=== PATIENT | female | born 1965 | race Hispanic/Latino ===

== ENCOUNTER 2017-05-16 08:20 | Emergency (ER) | payer MEDICAID ==
[2017-05-16] MEDS ORDERED: REGLAN IV ONE (09:05)
[2017-05-16] MEDS ORDERED: NACL 0.9% 1000 ML 1,000 ML IV ONE (09:05)
[2017-05-16] MEDS ORDERED: BENADRYL IV ONE (09:06)
--- NOTE | 2017-05-16 09:19 | Emergency Department Report ---
HPI - General Chief Complaint: Headache Time Seen by Provider: 05/16/17 08:54 - HPI HPI: This is a 51-year-old female presents to the emergency department from a mental health and substance abuse facility with complaint of a 2 day history of a frontal and superior headache. The patient says that she has been diagnosed with migraines in the past but says that she does not get them very often and therefore does not carry any type of medication to treat it. She does not currently have a primary care physician. She otherwise denies any past medical history. She is at the [facility] for both mental health and substance abuse with alcohol. She has some photophobia but otherwise denies any vision change, slurred speech or any neurological deficits. She did not take anything and was not given anything for her symptoms prior to presentation. ED Past Medical Hx - Past Medical History Previous Medical History?: Yes Hx Psychiatric Treatment: Yes (substance abuse) - Surgical History Past Surgical History?: Yes Additional Surgical History: Left foot surgery, left knee surgery, right hip surgery - Social History Smoking Status: Current Every Day Smoker Substance Use Type: Prescribed ED Review of Systems ROS: Stated complaint: HEADACHE Other details as noted in HPI Comment: All other systems reviewed and negative Constitutional: denies: chills, fever Eyes: denies: eye discharge, vision change ENT: denies: ear pain, throat pain Respiratory: denies: cough, shortness of breath, wheezing Cardiovascular: denies: chest pain, palpitations Gastrointestinal: denies: abdominal pain, nausea, diarrhea Genitourinary: denies: urgency, dysuria, discharge Musculoskeletal: denies: back pain, joint swelling, arthralgia Skin: denies: rash, lesions Neurological: headache. denies: weakness Physical Exam - Physical Exam Vital Signs: Vital Signs 05/16/17 05/16/17 08:28 09:10 Temperature 98 F Pulse Rate 71 Respiratory 18 18 Rate Blood Pressure 128/76 O2 Sat by Pulse 95 95 Oximetry Physical Exam: GENERAL: The patient is well-developed well-nourished. HENT: Normocephalic. Atraumatic. Patient has moist mucous membranes. EYES: Extraocular motions are intact. Pupils equal reactive to light bilaterally. No nystagmus. NECK: Supple. Trachea is midline. CHEST/LUNGS: Clear to auscultation. There is no respiratory distress noted. HEART/CARDIOVASCULAR: Regular. There is no tachycardia. There is no murmur. ABDOMEN: Abdomen is soft, nontender. Patient has normal bowel sounds. There is no abdominal distention. SKIN: Skin is warm and dry. NEURO: The patient is sleeping when approached but once awake, which was easy to do, she is alert and oriented 3. The patient has no focal neurologic deficits. The patient has normal speech. Cranial nerves II through XII grossly intact. MUSCULOSKELETAL: There is no tenderness or deformity. There is no limitation range of motion. There is no evidence of acute injury. ED Course Vital Signs 05/16/17 05/16/17 08:28 09:10 Temperature 98 F Pulse Rate 71 Respiratory 18 18 Rate Blood Pressure 128/76 O2 Sat by Pulse 95 95 Oximetry ED Medical Decision Making - Lab Data Result diagrams: 05/16/17 09:15 05/16/17 09:15 - Radiology Data Radiology results: report reviewed CT HEAD WITHOUT CONTRAST INDICATION: Headache. COMPARISON: None similar at this institution. FINDINGS: Noncontrast head CT demonstrates normal ventricles and sulci. Patent cavum septum pellucidum and vergae incidentally noted. No acute infarct, hemorrhage, mass effect or midline shift. No abnormal extra axial fluid collections. Normal posterior fossa with preserved basilar cisterns. Normal imaged eye globes. Small rightward nasal septal spur partially imaged. Slight ethmoid sinusitis anteriorly. Hypoplastic right frontal sinus. Clear remainder imaged paranasal sinuses and mastoid air cells except for minimal right mastoid tip air cell opacification as on axial image 8. Persistent metopic suture. No significantly depressed skull fractures. Normal scalp. Few radiopaque dental fillings. Bilateral earrings. CONCLUSION: No acute intracranial CT abnormality with few incidental findings, as above. - Medical Decision Making 51-year-old female presents to the emergency department from her mental health and substance abuse facility with complaint of a 2 day history of a headache. She says she has a history of migraines. There are no focal, motor or sensory deficits in her cranial nerves are intact. She was given Benadryl and Reglan. CT of the head does not show any bleed, shift, mass or any acute process. Vital signs are stable throughout her ED course. Labs are unremarkable. The patient was reevaluated multiple times over multiple hours and each time the patient is sleeping comfortably but easily arousable. She says that she has follow-up with a primary care doctor and a neurologist but will be given referrals for these physicians. She is encouraged to follow up with them but to return to the emergency Department with any worsening of her symptoms or any acute distress. Discharge instructions were provided pollen the department and all of her questions answered. - Differential Diagnosis migraine, tension headache, cluster headache, brain bleed Critical Care Time: No Critical care attestation.: If time is entered above; I have spent that time in minutes in the direct care of this critically ill patient, excluding procedure time. ED Disposition Clinical Impression: Headache Qualifiers: Headache type: unspecified Headache chronicity pattern: unspecified pattern Intractability: not intractable Qualified Code(s): R51 - Headache Disposition: DC- TO HOME OR SELFCARE Is pt being admited?: No Condition: Stable Instructions: Migraine Headache (ED), Acute Headache (ED) Additional Instructions: Please follow-up with your primary care physician once she was able to do so. I have given you a referral for a local neurologist in case he was like to follow up regarding your headaches and previous diagnosis of migraines. Return to the emergency Department with any worsening of your symptoms or any acute distress. Referrals: JEAN-PAUL VELAZQUEZ MD [Primary Care Provider] - JO MALLORY MD [Staff Physician] - MANDI Time of Disposition: 11:17
[2017-05-16 09:39] LABS: Basophils % (Auto) 0.2 % (0.0-1.8); Hemoglobin 13.7 gm/dl (10.1-14.3); Mean Corpuscular HGB Conc 34 % (30-34); Mean Corpuscular Hemoglobin 31 pg (28-32); Mean Corpuscular Volume 91 fl (79-97); Platelet Count 217 K/mm3 (140-440); Red Cell Distribution Width 12.8 % (13.2-15.2); White Blood Count 5.6 K/mm3 (4.5-11.0)
[2017-05-16 09:45] LABS: Anion Gap 17 mmol/L; BUN/Creatinine Ratio 14; Blood Urea Nitrogen 10 mg/dL (7-17); Calcium 9.3 mg/dL (8.4-10.2); Carbon Dioxide 26 mmol/L (22-30); Chloride 102.5 mmol/L (98-107); Glucose 109 mg/dL (65-100); Potassium 4.1 mmol/L (3.6-5.0); Sodium 141 mmol/L (137-145)
--- NOTE | 2017-05-16 11:01 | Cat Scan Report ---
CT HEAD WITHOUT CONTRAST INDICATION: Headache. COMPARISON: None similar at this institution. FINDINGS: Noncontrast head CT demonstrates normal ventricles and sulci. Patent cavum septum pellucidum and vergae incidentally noted. No acute infarct, hemorrhage, mass effect or midline shift. No abnormal extra axial fluid collections. Normal posterior fossa with preserved basilar cisterns. Normal imaged eye globes. Small rightward nasal septal spur partially imaged. Slight ethmoid sinusitis anteriorly. Hypoplastic right frontal sinus. Clear remainder imaged paranasal sinuses and mastoid air cells except for minimal right mastoid tip air cell opacification as on axial image 8. Persistent metopic suture. No significantly depressed skull fractures. Normal scalp. Few radiopaque dental fillings. Bilateral earrings. CONCLUSION: No acute intracranial CT abnormality with few incidental findings, as above. Thank you for the opportunity to participate in this patient's care.
[2017-05-16 12:02] VITALS: BP 119/74
== END 2017-05-16 12:06 | disposition home or self-care (01) ==
LOC: ED 08:20
DX: R51 Headache (principal); F17.200 Nicotine dependence, unspecified, uncomplicated
CPT/HCPCS: 36415; 70450; 80048; 84443; 85025; 96361; 96374; 96375; 99284; J1200; J2765; J7030

== ENCOUNTER 2019-02-27 11:18 | Outpatient (CLI) | payer MEDICAID ==
[2019-02-27 12:10] LABS: Hematocrit 40.9 % (30.3-42.9); Hemoglobin 13.9 gm/dl (10.1-14.3); Mean Corpuscular HGB Conc 34 % (30-34); Mean Corpuscular Volume 93 fl (79-97); Platelet Count 209 K/mm3 (140-440); Red Blood Count 4.38 M/mm3 (3.65-5.03); Red Cell Distribution Width 13.9 % (13.2-15.2)
[2019-02-27 12:33] LABS: Alanine Aminotransferase 28 units/L (7-56); Albumin 4.3 g/dL (3.9-5); BUN/Creatinine Ratio 20; Blood Urea Nitrogen 14 mg/dL (7-17); Calcium 9.9 mg/dL (8.4-10.2); HDL Cholesterol 40 mg/dL (40-59); Hemolysis Index 4; LDL Cholesterol,Direct 81 mg/dL (50-130)
== END 2019-02-27 11:19 | disposition home or self-care (01) ==
LOC: LAB 11:18
PROVIDERS: ATTEND Internal Medicine
DX: R06.02 Shortness of breath (principal); R60.0 Localized edema; E66.9 Obesity, unspecified
CPT/HCPCS: 36415; 36600; 80053; 80061; 82803; 84436; 84443; 85027